=== PATIENT | male | born 1990 | race African-American/Black ===

== ENCOUNTER 2022-11-25 12:32 | Emergency (ER) | payer SELFPAY ==
--- NOTE | ~2022-11-25 | XR_ITS ---
EXAMINATION: XR KNEE, RIGHT CLINICAL INFORMATION: Fall with knee pain COMPARISON: None TECHNIQUE: Four views of the right knee. FINDINGS: Bones and soft tissues are normal. No fracture or joint effusion. Alignment is anatomic. Joint spaces are well maintained. No abnormal soft tissue calcification. XR/XR knee RT 4V IMPRESSION: Normal right knee.
--- NOTE | 2022-11-25 12:51 | ED.GENADULT ---
HPI - General Adult General Chief complaint: Extremity Injury, Lower <Leeann Brizuela CNP - Last Filed: 11/25/22 12:55> Stated complaint: Fall 2 days ago/ knee pain <Leeann Brizuela CNP - Last Filed: 11/25/22 12:55> Time Seen by Provider: 11/25/22 13:43 <Leeann Brizuela CNP - Last Filed: 11/25/22 12:55> Source: patient and RN notes reviewed <Cj Jo - Last Filed: 11/25/22 13:56> Mode of arrival: wheelchair <Cj Jo - Last Filed: 11/25/22 13:56> Limitations: no limitations <Cj Jo - Last Filed: 11/25/22 13:56> History of Present Illness HPI narrative: 32-year-old male with no significant past medical history presents for evaluation of right knee pain. Patient reports that 3 days ago while standing and 17 from ladder he fell down the ladder landing on his right knee. He has a small scrape just below his right knee and reports he is unable to walk well without significant discomfort He has been borrowing a friend's crutches to help get around for the last few days He reports some mild left forearm discomfort and numbers but no other significant induration a fall. The patient did not hit his head or lose consciousness He rates the discomfort as 8/10 and worse when attempting to stand <Cj Jo - Last Filed: 11/25/22 13:56> Related Data Allergies/adverse reactions: Allergies Allergy/AdvReac Type Severity Reaction Status Date / Time Penicillins Allergy Unknown Unknown Verified 11/25/22 12:55 oranges Allergy Unknown Unknown Uncoded 11/25/22 12:55 <Leeann Brizuela CNP - Last Filed: 11/25/22 12:55> Review of Systems Constitutional: Constitutional: Reports as per HPI, Denies chills and Denies fatigue <Cj Jo - Last Filed: 11/25/22 13:56> Cardiovascular: Cardiovascular: Denies chest pain and Denies dyspnea <Cj Jo - Last Filed: 11/25/22 13:56> Respiratory: Respiratory: Denies cough and Denies dyspnea <Cj Jo - Last Filed: 11/25/22 13:56> Gastrointestinal: Gastrointestinal: Denies abdominal pain, Denies constipation and Denies vomiting <Cj Jo - Last Filed: 11/25/22 13:56> Genitourinary: Genitourinary: Denies difficulty urinating and Denies dysuria <Cj JoséFalls - Last Filed: 11/25/22 13:56> Musculoskeletal: Musculoskeletal: Reports arthralgias <Cj Jo - Last Filed: 11/25/22 13:56> Endocrine: Endocrine: Denies fatigue <Cj Jo - Last Filed: 11/25/22 13:56> PMFSH Social History Social History: Social History Advance Directives: No Advance Directives Information Provided: Yes <Leeann Brizuela CNP - Last Filed: 11/25/22 12:55> Physical Exam ED Vital Signs: Vital Signs - 24 hr 11/25/22 12:53 Temperature 97.1 F Pulse Rate 91 Respiratory Rate 16 Blood Pressure 166/76 H Pulse Oximetry 96 Oxygen Delivery Method Room Air BMI result Body Mass Index 31.0 <Leeann Brizuela [facility] - Last Filed: 11/25/22 12:55> Vital Signs - 24 hr 11/25/22 12:53 Temperature 97.1 F Pulse Rate 91 Respiratory Rate 16 Blood Pressure 166/76 H Pulse Oximetry 96 Oxygen Delivery Method Room Air BMI result Body Mass Index 31.0 <Cj Jo - Last Filed: 11/25/22 13:56> Const General: healthy appearing, comfortable, no acute distress, alert and awake <Cj Jo - Last Filed: 11/25/22 13:56> Nutritional Appearance: well nourished <Cj Jo - Last Filed: 11/25/22 13:56> Orientation/consciousness: patient oriented x3 <Cj Jo - Last Filed: 11/25/22 13:56> Eyes Eyelids: Yes eyelids normal <Cj Jo - Last Filed: 11/25/22 13:56> Conjunctivae: conjunctivae normal <Cj Jo - Last Filed: 11/25/22 13:56> Sclerae: sclerae normal <Cj O Last Filed: 11/25/22 13:56> Corneas: corneas normal < Last Filed: 11/25/22 13:56> Pupils: Equal, round and reactive pupils present <Cj Emery Last Filed: 11/25/22 13:56> EOM: EOMs intact bilaterally < Last Filed: 11/25/22 13:56> Resp Effort & Inspection: normal respiratory effort, able to speak in complete sentences, no audible wheezes and not labored < Last Filed: 11/25/22 13:56> Skin General skin exam: no rashes or lesions noted and elasticity normal < Last Filed: 11/25/22 13:56> Lesions: no lesions < Last Filed: 11/25/22 13:56> Rashes: no rashes <Cj Emery Last Filed: 11/25/22 13:56> Neuro General: patient oriented x3 < Last Filed: 11/25/22 13:56> Cranial nerves: Yes Equal, round and reactive pupils present <Cj Emery Filed: 11/25/22 13:56> Extrem Other: Patient is a small abrasion in the right infrapatellar area. There is no significant edema in the area. No deep lacerations. The patient has tenderness in the right infrapatellar region. Patella tendon is full without any bogginess. No significant joint effusion. No laxity with anterior drawer testing, negative valgus/varus strain. Patient exhibits regular lift his right leg off the stretcher and extend the right knee. <Cj LandFalls - Last Filed: 11/25/22 13:56> Course Course Course Narrative: This is an RME: Additional HPI, ROS, PE not included below will be deferred to primary provider. Patient is a 32-year-old male Presents to the emergency department today for evaluation of right knee pain. Reports a fall 3 days ago, was on top of a 17 ft ladder, the ladder began retracting down words, subsequently causing him to fall down the ladder, did not fall backwards or off of the ladder. There is no head strike or loss of consciousness. Reports pain inferior to the right knee, that is made worse with weight-bearing. He has borrowed crutches and is only able to tolerate a small amount of weight-bearing, he reports that he feels a ?shifting? beneath the knee if he attempts to walk or bear weight. Plan: XR right knee <Leeann Brizuela CNP - Last Filed: 11/25/22 12:55> Medical Decision Making Medical Decision Making MDM Narrative: Patient had a fairly significant fall 3 days ago. Denies any head strike or loss of consciousness. He is neurologically intact. His only significant injury was to the right knee. X-ray ordered which did not show any bony abnormality. The patient's quadriceps tendon and patellar tendon appear intact. No evidence of tibial plateau fracture. The patient was placed in a knee immobilizer and given orthopedic referral. He reports that he has crutches at home does not want any pain <Cj Jo - Last Filed: 11/25/22 13:56> Differential Diagnosis Right knee sprain Right knee fracture Tibial plateau fracture Ligamentous injury Meniscal injury <Cj Jo - Last Filed: 11/25/22 13:56> Discharge Plan Discharge Clinical Impression: Knee pain, right <Leeann Brizuela CNP - Last Filed: 11/25/22 12:55> Patient Disposition: Home, Self-Care <Leeann Brizuela CNP - Last Filed: 11/25/22 12:55> Instructions: Knee Pain (ED) <Leeann Brizuela CNP - Last Filed: 11/25/22 12:55> Additional Instructions: Your x-ray did not show any evidence of fracture. It is still possible that you have a ligamentous injury. Stay off leg for the next week. Elevate the leg above your heart while resting. Use Motrin/Tylenol for discomfort Follow-up with Orthopedics, he may need further evaluation if her symptoms do not improve after 1 week <Leeann Brizuela CNP - Last Filed: 11/25/22 12:55> Referrals: Sophie Mckeon MD [Physician] - <Leeann Brizuela CNP - Last Filed: 11/25/22 12:55> Stand Alone Forms: Work/School Release <Leeann Brizuela CNP - Last Filed: 11/25/22 12:55>
[2022-11-25 12:53] VITALS: BP 166/76; PULSE 91; RESP 16; TEMP 36.2; O2SAT 96; BMI 31.0
== END 2022-11-25 14:06 | disposition home or self-care (01) ==
PROVIDERS: Emergency Provider Emergency Medicine Emergency Medical Services
DX: M25.561 Pain in right knee (principal)
CPT/HCPCS: 73564; 99282; 99283